=== PATIENT | female | born 1955 | race Caucasian/White ===

== ENCOUNTER 2016-04-08 05:54 | Inpatient (IN) | payer OTHER ==
--- NOTE | 2016-04-01 14:48 | NUR ---
Joint CAMP: Patient attended Joint [facility] at [facility], patient will be in for a hip replacement on 04/07/16. Marely Henriquezketty [phone] is the DPOA for patient. Patient comes from home and has 1 1/2 stairs to enter the home and then no stairs inside the home. Patient has boyfriend Rajendra, Mother Diane and Brother Thom to assist with care post discharge. Her boyfriend Rajendra with transport on day of discharge. Patient has never been involved with home health services or SNF, patient has been connected with outpatient therapy. Patient does have bath bench,elevated toilet seat and walker.
[2016-04-08] VITALS (19 sets, daily range): BP systolic 91–118; BP diastolic 52–62; PULSE 45–99; RESP 10–21; O2SAT 92–100
[~2016-04-08] VITALS: Ht 162.6 cm; Wt 74.4 kg
[2016-04-08] MEDS: Lactated Ringer's 1,000 ML IV SCH ×4 (05:00→08:47)
[~2016-04-08 05:54] MED LIST: OXYC1TAB24 PO; ROB500 PO; sudafed
[2016-04-08] MEDS ORDERED: Vancomycin Inj 1,000 MG in IV Premix 1 EACH IV ONE (06:00)
[2016-04-08] MEDS ORDERED: CeFAZolin 2 Gm/50 mL D5W IV Premix IV ONE (06:00)
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
[2016-04-08] MEDS ORDERED: MetoCLOpramide 5 mg/mL 2 mL Inj ONE (08:00)
[2016-04-08] MEDS ORDERED: Propofol 10,000 mCg/mL 20 mL Inj ONE (08:00)
[2016-04-08] MEDS ORDERED: Dexamethasone 4 mg/mL Inj ONE (08:00)
[2016-04-08] MEDS ORDERED: Ondansetron 2 mg/mL 2 mL Inj ONE (08:00)
[2016-04-08] MEDS ORDERED: Ropivacaine-PF 0.5% 30 mL Inj INFILTRATE ONE (08:13)
[2016-04-08] MEDS ORDERED: Acetaminophen IV 1,000 MG in IV Premix 1 EACH IV PRN (09:50)
[2016-04-08] MEDS ORDERED: Ondansetron 2 mg/mL 2 mL Inj IVPUSH PRN ×2 (09:50→10:00)
[2016-04-08] MEDS ORDERED: Sodium Biphos-Phos 133 mL Enema RECTAL PRN (09:50)
[2016-04-08] MEDS ORDERED: Magnesium Hydroxide 10 mL Oral Concentration PO PRN (09:50)
[2016-04-08] MEDS ORDERED: Polyethylene Glycol (PEG) 17 Gm Powder PO PRN (09:50)
[2016-04-08] MEDS ORDERED: diphenhydrAMINE 25 mg Capsule PO PRN (09:50)
[2016-04-08] MEDS ORDERED: Lactated Ringer's 500 ML IV PRN (09:57)
[2016-04-08] MEDS ORDERED: Lactated Ringer's 1,000 ML IV SCH (09:57)
[2016-04-08] MEDS ORDERED: Phenylephrine 10,000 mCg/mL Inj IVPUSH PRN (10:00)
[2016-04-08] MEDS ORDERED: MetoCLOpramide 5 mg/mL 2 mL Inj IVPUSH PRN (10:00)
[2016-04-08] MEDS ORDERED: fentaNYL-PF 50 mCg/mL 2 mL Inj IVPUSH PRN (10:00)
[2016-04-08] MEDS ORDERED: Dexamethasone 4 mg/mL Inj IVPUSH PRN (10:00)
[2016-04-08] MEDS ORDERED: EPHEDrine Sulfate 50 mg/mL Inj IVPUSH PRN (10:00)
[2016-04-08] MEDS: HYDROmorphone 1 mg/mL Inj IVPUSH PRN ×6 (10:12→23:15)
--- NOTE | 2016-04-08 10:51 | DRSVH ---
PROCEDURE: X-RAY PELVIS W/LAT HIP (LT) ([id number]) INDICATIONS: POST OP TECHNIQUE: AP pelvis with lateral view(s) of the left hip(s). COMPARISON: 01/18/2016 FINDINGS: Bones: Acute postoperative changes of total left hip arthroplasty with expected alignment and appeara nce. Soft tissues: The visualized bowel gas pattern is normal. No suspicious soft tissue calcifications. IMPRESSION: Postoperative changes total left hip arthroplasty. Dictated by: Lee Quintana M.D. on 04/08/2016 at 10:49 Approved by: Lee Quintana M.D. on 04/08/2016 at 10:50
[2016-04-08] MEDS: oxyCODONE-Acetamin 10-325 mg Tablet PO PRN (11:32)
--- NOTE | 2016-04-08 12:08 | PCM.ANEP1 ---
Post Anesthesia Phase 1 PACU Phase 1 Assessment Vital Signs Vital Signs Date Time Temp Pulse Resp B/P Pulse Ox O2 Delivery O2 Flow Rate FiO2 04/08/16 11:21 16 100 04/08/16 11:08 48 16 97/56 100 Nasal Cannula 2 04/08/16 11:01 15 96 04/08/16 11:00 48 15 101/60 94 Nasal Cannula 2 04/08/16 10:55 45 14 99/52 92 Room Air 04/08/16 10:45 46 10 108/58 96 Room Air 04/08/16 10:36 16 97 04/08/16 10:30 46 11 103/56 97 Room Air 04/08/16 10:19 16 96 04/08/16 10:15 36.2 55 16 111/54 97 Room Air 04/08/16 10:10 60 16 101/53 98 Room Air 04/08/16 10:00 51 16 102/61 99 Room Air 04/08/16 09:55 53 16 104/62 99 Room Air 04/08/16 09:50 14 99 04/08/16 09:50 53 14 91/56 100 Simple Mask 9 04/08/16 09:48 36.1 53 13 96/58 100 Simple Mask 9 04/08/16 06:30 36.6 63 18 118/53 97 Room Air Anesthetic Administered: GA Level of Alertness: Awake, talking Pain: No Nausea or Vomiting: No Oxygen Delivery: Room Air Lungs: Normal Air Movement Dermatome Level: L1,2 (Groin) Osmar Burkett MD Apr 08, 2016 12:08
--- NOTE | 2016-04-08 12:09 | PCM.ANEP2 ---
Post Anesthesia Evaluation ASA/CMS Post Anesthesia VS in Patient's Normal Range?: Yes Resp Stable; Airway Patent?: Yes CV Function & Hydration Stable: Yes Mental Status Recovered?: Yes Pain control Satisfactory?: Yes N/V Control Satisfactory?: Yes Osmar Burkett MD Apr 08, 2016 12:09
--- NOTE | 2016-04-08 12:53 | OP ---
[address] [address] OPERATIVE REPORT PATIENT: ZENAIDA FUNG : 1955 MR#: [id number] ADMIT: 04/08/2016 JOB ID: [id number] DATE OF SURGERY: 04/08/2016 PREOPERATIVE DIAGNOSIS(ES): Left hip degenerative arthritis. POSTOPERATIVE DIAGNOSIS(ES): Left hip degenerative arthritis. PROCEDURE: Left total hip arthroplasty. SURGEON: Adam Colldao DO PSYCHIATRIC SPECIALIST: Marely Nettles PA-C INDICATIONS: The patient is a 61-year-old female with left hip severe degenerative arthritis who had failed conservative measures and wished to proceed with a left total hip arthroplasty. We discussed the risks, benefits, and possible complications of surgery. All questions were answered. She wished to proceed. A certified surgical technician was required for the successful completion of this procedure. PROCEDURE IN DETAIL: The patient was brought to the operating room. She was given a preoperative antibiotic and 1 g TXA preoperatively, placed comfortably into the lateral decubitus position. The left hip was sterilely prepped and draped. An incision was made centered over the greater trochanter in line with the femur. Dissection was carefully carried through the subcutaneous tissue. Electrocautery was used for hemostasis. A split was then made in the iliotibial band in line with the skin incision and the Charnley retractor was then placed. A split was then made in the gluteus medius, between the junction of the anterior 1/3 and posterior 2/3, and Hohmann retractors were placed on either side of the femoral neck. An anterior sleeve of tissue was then released off of the trochanter, leaving a cuff of tissue for repair. This was taken to a point just distal to the vastus tubercle. A small triangular portion of capsule was then removed and the hip was then dislocated. A provisional neck cut was made about a fingerbreadth above the level of the lesser trochanter. The femur was then prepared, beginning with the box osteotome. This was then broached sequentially up to a size 5, which seemed to fit quite nicely. The six would not seat completely, therefore we went back to the 5 and calcar planed, and then addressed the acetabulum. Anterior and posterior acetabular retractors were placed and the pulvinar was removed from the acetabulum as well as the superior labrum and redundant capsular tissue. We then reamed the acetabulum beginning with a 45 reamer up to a 51 for a 52 cup. I initially seated the cup but felt that it was too uncovered posteriorly. 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 This was further secured with a single dome screw. We then trialed the hip and elected to go with a 36 plus 4 lateralized liner in order to give us a slight amount of leg length and increased offset and the 36 plus 1.5 ceramic head and the DePuy Tri Lock size 5 standard stem. The components were implanted. The hip was reduced. Had excellent stability, great range of motion. The wound was then irrigated and closed with #5 Ethibond to repair the capsule. The gluteus medius was repaired with #5 Ethibond and #1 Surgilon. The remainder of the vastus lateralis and gluteus was repaired with #1 Surgilon. The iliotibial band was repaired with #1 Surgilon and 0-Vicryl. The subcu was closed with 2-0 Vicryl and 2-V-Loc. The skin was closed with a running subcuticular 3-0 V-Loc and Naropin was added as an adjunct local anesthetic. Sterile dressings were applied. The patient tolerated the procedure well. Blood loss was 100 mL. Postop per protocol. Will have the patient weightbear to tolerance, use walker for ambulation, and will use Lovenox for DVT prophylaxis and Percocet 10/325 for pain, as she has been taking Percocet preoperatively for pain. Encouraged the patient to discontinue smoking.
[2016-04-08] MEDS: Ketorolac 15 mg/mL Inj IVPUSH PRN (12:56)
[2016-04-08] MEDS: 0.9% Sodium Chloride 1,000 ML IV SCH ×2 (12:57→23:51)
--- NOTE | 2016-04-08 13:10 | NUR ---
Admit to [facility] Pt transferred from PACU to [facility] at 1230 hrs. Pt alert and oriented x 3. PIV patent and intact. Left hip dressing clean, dry, and intact. All personal possessions with pt and place in closet in room. Pt in 8/10 pain; administered 15 mg IVP Toradol and 0.5 mg IVP Dilaudid. Pt also c/o itching around her nose. Will administer Benadryl. Care continues.
[2016-04-08] MEDS: CeFAZolin Inj 2 GM in IV Premix 1 EACH IV SCH ×2 (15:45→23:15)
[2016-04-08] MEDS: Sodium Chloride LOK Flush 10 mL Syringe IV SCH (16:30)
--- NOTE | 2016-04-08 16:35 | NUR ---
Nicotine withdrawal Pt feeling the urge to smoke and requesting a nicotine patch. Paged Dr. Collado and he did not want pt to have this, as nicotine impedes the healing process. Explained this to pt and she understands. Dr Collado suggested I give pt Valium as ordered to help with pt comfort. Care continues.
[2016-04-08] MEDS: Senna-Docusate 8.6-50 mg Tablet PO SCH (23:14)
[2016-04-08] MEDS: hydrOXYzine Pamoate 25 mg Capsule PO PRN (23:14)
[2016-04-09] MEDS: Sodium Chloride LOK Flush 10 mL Syringe IV SCH ×3 (00:30→16:53)
[2016-04-09 00:47] VITALS: BP 97/53; PULSE 61; RESP 18; O2SAT 96
[2016-04-09] MEDS: oxyCODONE-Acetamin 10-325 mg Tablet PO PRN ×4 (01:27→23:31)
[2016-04-09] MEDS: Ketorolac 15 mg/mL Inj IVPUSH PRN ×3 (01:31→23:31)
[2016-04-09] MEDS: HYDROmorphone 1 mg/mL Inj IVPUSH PRN ×2 (02:14→06:39)
[2016-04-09 05:23] VITALS: BP 104/54; PULSE 75; RESP 18; O2SAT 94
[2016-04-09] MEDS: 0.9% Sodium Chloride 1,000 ML IV SCH ×2 (05:46→15:46)
--- NOTE | 2016-04-09 06:00 | NUR ---
incisional pain Consistently 5-8. Ortho checks intact. Requires IV Dilaudid 1mg Q 3hrs and Roxycodone Q 4hrs. Repositioned and ice applied. Sleeping this morning.
[2016-04-09 06:25] LABS: BASOPHILS % (AUTO) 0.1 % (0-3); EOSINOPHILS % (AUTO) 0.1 % (0-5); Mean Corpuscular Hemoglobin 33.7 pg (27.0-35.0); Mean Corpuscular Volume 100.3 fL (81-100); NEUTROPHILS % (AUTO) 68.8 % (40-74); Platelet Count 252 bil/L (150-400)
[2016-04-09] MEDS: Senna-Docusate 8.6-50 mg Tablet PO SCH ×2 (08:30→19:51)
--- NOTE | 2016-04-09 08:59 | PCM.PNORTH ---
Subjective Date of Service: Apr 09, 2016 Visit Information: Reason for Visit Left Hip Arthritis Surgery/Surgery Date LEFT TOTAL HIP 04/08/16 Post-Op Day # Date of Admission: Apr 08, 2016 at 12:44 Hospital Day # Subjective Found patient awake and alert and sitting up in bed with nursing and nursing consultant. No complaints of pain at this time. Discussed her participation with formal physical therapy yesterday and encouraged her to continue this mobility and effort to achieve best results postop. Patient indicates she does have help at home in the form of a boyfriend and aged mother and a brother. I have encouraged patient to select one of these people that can help her with her Lovenox injections and to have them come in and receive training prior to discharge. I have discussed with patient that nursing home facility is no longer option at the time of discharge she were to pay privately and she relates that she is planning to discharge home. I have reviewed standard hip precautions with patient and encouraged use of the abduction wedge for the time being to help her remember not to cross her legs. Postop General: No Complaints, No Shortness of Breath, No Chest Pain, Good Appetite Pain Management: PO, IV Push Objective Exam Objective Orientation: Alert and oriented 3 and pleasant Dressing: Interoperative dressing is clean dry and intact Wound: Wound is not observed today Compartments: Calf and thigh are soft and nontender Mobility/sensation: Toprol and sensation are intact at left lower extremity distally Abduction wedge: In place RANDA hose: Absent Lin: Absent Wound VAC: Absent Drain: Absent Gait: Gait 20 feet on up today with formal physical therapy. Vital Signs and I/O Vital Sign - Last Date Time Temp Pulse Resp B/P Pulse Ox O2 Delivery O2 Flow Rate FiO2 04/09/16 05:23 36.7 75 18 104/54 94 Room Air 04/08/16 12:19 2 Intake and Output 04/08/16 04/08/16 04/09/16 Cumulative From/Thru 15:00 23:00 07:00 04/03/16 09:49 - 04/09/16 06:42 Intake Total 1695 ml 1600 ml 2535 ml 6030 ml Output Total 600 ml 400 ml 950 ml 1950 ml Balance 1095 ml 1200 ml 1585 ml 4080 ml Intake Oral 1600 ml 700 ml 2300 ml IV Total 1695 ml 1835 ml 3730 ml Output Urine Total 500 ml 400 ml 950 ml 1850 ml Estimated Blood Loss 100 ml 100 ml # Bowel Movements 0 0 Lab & Micro Results Laboratory Tests Test 04/09/16 05:55 White Blood Count 18.6th/mm3 (3.8-10.1) Red Blood Count 3.15mil/mm3 (3.90-5.20) Hemoglobin 10.6g/dL (12.0-15.6) Hematocrit 31.6% (35.0-46.0) Mean Corpuscular Volume 100.3fL (81-100) Mean Corpuscular Hemoglobin 33.7pg (27.0-35.0) Mean Corpuscular Hemoglobin Concent 33.5% (32.0-37.0) Red Cell Distribution Width 13.0% (12.3-15.4) Platelet Count 252bil/L (150-400) Neutrophils (%) (Auto) 68.8% (40-74) Lymphocytes (%) (Auto) 22.7% (14-46) Monocytes (%) (Auto) 8.0% (4-12) Eosinophils (%) (Auto) 0.1% (0-5) Basophils (%) (Auto) 0.1% (0-3) Sodium Level 138mEq/L (134-144) Potassium Level 4.3mEq/L (3.5-5.2) Chloride Level 101mEq/L (97-108) Carbon Dioxide Level 25mmol/L (18-29) Blood Urea Nitrogen 16mg/dL (8-27) Creatinine 1.17mg/dL (0.57-1.00) Estimat Glomerular Filtration Rate 67mL/min (>59) Glucose Level 139mg/dL (60-99) Calcium Level 8.9mg/dL (8.5-10.1) Result Diagram: 04/09/16 0555 04/09/16 0555 General Appearance: Alert, Oriented X3, Cooperative, No Acute Distress Extremities: No Compartment Syndrom Noted, Thigh & Calf Soft/Nontender Postop Sensory Motor: Distal Motor Intact, Movement in Toes, Distal Sensation Intact Activity: Activity per PT, Ambulate with PT (weightbearing as tolerated on the left lower extremity using front wheeled walker.) Catheters: None Assessment & Plan Plan Postop day # 1 from left total hip arthroplasty performed on 04/08/[address] Adam Collado. Weight bearing status: Weightbearing as tolerated on the left lower extremity using front wheeled walker. Mobility aid: Front wheeled walker Immobilization: None Precautions: No hip flexion past 90. No crossing of the legs. No active abduction 6 weeks. Physical therapy: Continue formal physical therapy for mobility, gait and safety. Pain control: Continue by mouth pain medication as needed. Removed patient away from IV pain medication as soon as possible beginning today. DVT prophylaxis: Lovenox 40 mg 3 weeks postop with transition to ASA 325 mg EC by mouth twice a day for an additional 3 weeks postop totaling 6 weeks postoperative DVT prophylaxis. Wound care: Keep wound and dressing clean dry and intact until seen in office in 2 weeks. Infectious DZ: None Lin: Absent Dressing: Interoperative dressing is clean dry and intact and will be changed tomorrow on postop day #2, 04/10/2016 Drain: None Abduction wedge: In place and working RANDA hose: Bilateral thigh high RANDA hose are ordered today. SCDs: In place and working Nursing communication: Nursing please move patient away from IV pain medications as soon as possible in preparation for discharge on postop day #3. 2-week follow-up: Follow-up in 2 weeks [facility] orthopedic clinic on prearranged appointment with [facility] for wound check and suture removal. 6-week follow-up: Follow-up in 6 weeks at [facility] orthopedic clinic with Dr. Adam Collado with AP pelvis and left crosstable lateral hip x-rays on arrival. Plan: Patient will be in-house for 2-3 days and participate with formal physical therapy and ideally discharge to home on December 10 postop day #3. Discharge instructions: No hip flexion past 90, no crossing of the legs, no active abduction 6 weeks. Keep wound and dressing clean dry and intact until seen in office in 2 weeks. Change dressing as needed if it becomes soiled or loose. Ice surgical area as needed. Use front wheeled walker and continue to pursue gait and mobility. Discharge plan: Anticipate discharge to home with family has caregivers on 44 postop day #3, 04/11/2016. VTE Prophylaxis: Sub-Q Enoxaparin (Lovenox 40 mg subcutaneous daily 3 week postop with transition to ASA 325 mg EC by mouth twice a day for an additional 3 weeks totaling 6 weeks DVT prophylaxis.) Vernon Del Toro PA-C Apr 09, 2016 08:42
[2016-04-09] MEDS: hydrOXYzine Pamoate 25 mg Capsule PO PRN ×3 (10:00→19:51)
--- NOTE | 2016-04-09 10:30 | NUR ---
Heartburn Pt c/o heartburn after breakfast this a.m., and requested medication such as Tums. Paged Vernon WISE, and he said he would order something for her as soon as possible. Care continues.
[2016-04-09] MEDS ORDERED: Alum-Mag Hydrox-Simeth 30 mL Suspension PO PRN (12:55)
[2016-04-09 14:10] VITALS: BP 105/60; PULSE 79; RESP 16; O2SAT 97
--- NOTE | 2016-04-09 15:32 | NUR ---
Evaluation completed. Please go to "Notes" then click on "Assessments and Notes" (bottom left corner of screen). Then select appropriate discipline tab on top of screen.
--- NOTE | 2016-04-09 17:52 | NUR ---
Social work Screen Note: Patient is a 73 year old female admitted under observation status for left hip arthritis. Patient payer as [employer]. Patient has no prison disability nor [place] benefits. Patient [place] with mother Marely, . Patient pharmacy of choice as [facility]. Patient has no HHC or SNF history. Patient has a walker for use at home. Patient has AD on file. Patient states that he still drives and independent with needs prior to admit. PT assessed patient and recommending HHC vs outpt PT. SW to follow up with patient tomorrow to obtain HHC choice and to determine discharge needs with further PT eval. SW to follow. PLAN: Home with HHC vs outpt PT. Discharge pending clinical course. SW to follow for HHC choice vs outpt PT lona LORENZO Addendum: 04/10/16 at 1224 by MEGHNA GAYLE PLEASE DISREGARD ABOVE NOTE:
[2016-04-09 20:28] VITALS: BP 123/69; PULSE 84; RESP 18; O2SAT 95
[2016-04-10] VITALS (7 sets, daily range): BP systolic 109–123; BP diastolic 64–73; PULSE 77–96; RESP 16–19; O2SAT 95–98
[2016-04-10] MEDS: Sodium Chloride LOK Flush 10 mL Syringe IV SCH ×3 (00:30→17:57)
[2016-04-10] MEDS: 0.9% Sodium Chloride 1,000 ML IV SCH ×3 (01:46→19:43)
--- NOTE | 2016-04-10 06:16 | NUR ---
pain pt consistently rates her pain in her hip 11/16. per report pt was needing pain medication every 2hrs. this shift she was able to go 4-5hrs in between and sleep, which seems to be and improvement.
[2016-04-10 06:24] LABS: BASOPHILS % (AUTO) 0.3 % (0-3); EOSINOPHILS % (AUTO) 0.6 % (0-5); MONOCYTES % (AUTO) 8.7 % (4-12); Mean Corpuscular Hemoglobin 34.3 pg (27.0-35.0); Mean Corpuscular Volume 99.4 fL (81-100); NEUTROPHILS % (AUTO) 62.4 % (40-74); Platelet Count 249 bil/L (150-400)
--- NOTE | 2016-04-10 07:10 | PCM.PNORTH ---
Subjective Date of Service: Apr 10, 2016 Visit Information: Reason for Visit Left Hip Arthritis Surgery/Surgery Date LEFT TOTAL HIP 04/08/16 Post-Op Day # Date of Admission: Apr 08, 2016 at 12:44 Hospital Day # Subjective Found patient awake and alert this morning and well position in bed with abduction pillow in place. Patient continues to complain of pain which seems to be a low-level but is difficult to chris. I have explained to the patient that her chronic Percocet 10 use for multiple other issues including neck back and hip prior to her surgery has caused a condition of the situation and has reduced its effectiveness for use on her current postop pain. I have explained to her that this is the result of chronic opioid use and that ultimately she will probably experience more significant pain than someone who was not on chronic opioids prior to surgery. I will also explained to her that we will make changes in her medication regime today in an effort to reduce her discomfort without either causing her to be somnolent or depressing her respiratory drive. We will also discussed the fact that we cannot send her home on IV pain medications so that we will move her away from those again today. I have reassured patient that her wound is in good condition and that she participated very well with physical therapy yesterday on postop day 1 with a total of gait 110 feet. We have discussed discharge tomorrow on postop day 3 and I explained to her again that because her surgery is elective discharged to a [facility] facility would not be an option unless she is willing to pay for this on her own. I have encouraged her to continue her good participation with formal physical therapy and to anticipate discharge tomorrow on postop day #3. Postop General: No Shortness of Breath, No Chest Pain, Good Appetite Pain Management: PO, IV Push Objective Exam Objective Orientation: Alert and oriented 3 and pleasant. Dressing: Intraoperative dressing is lightly soiled and loosened. Dressing is changed this morning to shingled island-type dressings with ends cut to facilitate drying of the wound. Silverlon dressing adjunct is in place. Wound: Wound is in good condition with no focal erythema, swelling or drainage. There is some ecchymosis noted about the surgical site but this is mild. There does appear to be some tape kapoor about the surgical site which are small in nature and not deep. Compartments: Calf and thigh are soft and nontender. Mobility/sensation: Toe wiggle and sensation are intact at left lower extremity distally. Abduction wedge: Abduction wedge is in place. RANDA hose: Absent Lin: Wound VAC: None Drain: None Gait: Gait 110 feet yesterday on postop day #1, 04/09/2016 with formal physical therapy. Vital Signs and I/O Vital Sign - Last Date Time Temp Pulse Resp B/P Pulse Ox O2 Delivery O2 Flow Rate FiO2 04/10/16 06:14 36.9 80 18 123/69 97 Room Air 04/08/16 12:19 2 Intake and Output 04/09/16 04/09/16 04/10/16 Cumulative From/Thru 15:00 23:00 07:00 04/03/16 09:49 - 04/10/16 06:43 Intake Total 202 ml 779 ml 300 ml 7311 ml Output Total 675 ml 1750 ml 4375 ml Balance 202 ml 104 ml -1450 ml 2936 ml Intake Oral 779 ml 300 ml 3379 ml IV Total 202 ml 3932 ml Output Urine Total 675 ml 1750 ml 4275 ml Estimated Blood Loss 100 ml # Voids 3 3 # Bowel Movements 0 0 Lab & Micro Results Laboratory Tests Test 04/10/16 06:10 White Blood Count 19.9th/mm3 (3.8-10.1) Red Blood Count 3.24mil/mm3 (3.90-5.20) Hemoglobin 11.1g/dL (12.0-15.6) Hematocrit 32.2% (35.0-46.0) Mean Corpuscular Volume 99.4fL (81-100) Mean Corpuscular Hemoglobin 34.3pg (27.0-35.0) Mean Corpuscular Hemoglobin Concent 34.5% (32.0-37.0) Red Cell Distribution Width 13.3% (12.3-15.4) Platelet Count 249bil/L (150-400) Neutrophils (%) (Auto) 62.4% (40-74) Lymphocytes (%) (Auto) 27.4% (14-46) Monocytes (%) (Auto) 8.7% (4-12) Eosinophils (%) (Auto) 0.6% (0-5) Basophils (%) (Auto) 0.3% (0-3) Sodium Level 138mEq/L (134-144) Potassium Level 4.3mEq/L (3.5-5.2) Chloride Level 102mEq/L (97-108) Carbon Dioxide Level 24mmol/L (18-29) Blood Urea Nitrogen 14mg/dL (8-27) Creatinine 0.85mg/dL (0.57-1.00) Estimat Glomerular Filtration Rate 97mL/min (>59) Glucose Level 103mg/dL (60-99) Calcium Level 9.2mg/dL (8.5-10.1) Result Diagram: 04/10/1660904/10/16609 General Appearance: Alert, Oriented X3, Cooperative, No Acute Distress Extremities: No Compartment Syndrom Noted, Thigh & Calf Soft/Nontender Postop Sensory Motor: Distal Motor Intact, Movement in Toes, Distal Sensation Intact Activity: Activity per PT, Ambulate with PT (weightbearing as tolerated on the left lower extremity using front wheeled walker.) Catheters: None Assessment & Plan Impression Patient is a pleasant 61-year-old female who is postop day 2 from a left total hip arthroplasty and experiencing some discomfort at her surgical site. Patient has a history of chronic opioid use with Percocet tens and I have discussed with her that this is the reason she is having some difficulty with pain control. She has participated very well with physical therapy on postop day 1 and I am encouraged patient she is doing well in her recovery. Problems: Plan Postop day # 2 from left total hip arthroplasty performed on 04/08/[address] Adam Collado. Weight bearing status: Weightbearing as tolerated on the left lower extremity using front wheeled walker. Mobility aid: Front wheeled walker Immobilization: Hip abduction wedge to used while in bed. Precautions: No hip flexion past 90. No crossing of the legs. No active abduction 6 weeks. Physical therapy: Continue formal physical therapy for mobility, gait and safety. Pain control: Continue by mouth pain medications including Percocet 10, Vistaril 25-50 and supplemental [place] 5 mg as needed.. Move patient away from IV pain medication as soon as possible beginning today. DVT prophylaxis: Lovenox 40 mg 3 weeks postop with transition to ASA 325 mg EC by mouth twice a day for an additional 3 weeks postop totaling 6 weeks postoperative DVT prophylaxis. Wound care: Keep wound and dressing clean dry and intact until seen in office in 2 weeks. Infectious DZ: None Lin: Absent Dressing: Interoperative dressing is changed to postop Island dressings today which are shingled and trimmed promote airflow and drying of the wound. Wound is in good condition with no focal erythema, swelling or drainage. There is some ecchymosis and some apparent tape kapoor at the periphery which are mild in nature. Drain: None Abduction wedge: In place and working. Abduction wedge may be removed unless patient feels more comfortable with it. Straps may also be discontinued if she wants the wedge left in place which may promote her comfort. RANDA hose: Absent. Bilateral thigh high RANDA hose are reordered today. SCDs: In place and working Nursing communication: Nursing please move patient away from IV pain medications as soon as possible in preparation for discharge on postop day #3. Abduction wedge may be removed unless patient feels more comfortable with it. Straps may also be discontinued if she wants the wedge left in place which may promote her Comfort. Nursing please fit with bilateral thigh- high RANDA hose today. These were ordered yesterday. 2-week follow-up: Follow-up in 2 weeks S [facility] orthopedic clinic [facility] for wound check and suture removal. 6-week follow-up: Follow-up in 6 weeks at [facility] orthopedic clinic with Dr. Adam Collado with AP pelvis and left crosstable lateral hip x-rays on arrival. Plan: Patient will be in-house for 2-3 days and participate with formal physical therapy and ideally discharge to home on December 10 postop day #3. Discharge instructions: No hip flexion past 90, no crossing of the legs, no active abduction 6 weeks. Keep wound and dressing clean dry and intact until seen in office in 2 weeks. Change dressing as needed if it becomes soiled or loose. Ice surgical area as needed. Use front wheeled walker and continue to pursue gait and mobility. Discharge plan: Anticipate discharge to home with family as caregivers on postop day #3, 04/11/2016. VTE Prophylaxis: Sub-Q Enoxaparin (Lovenox 40 mg subcutaneous daily 3 week postop with transition to ASA 325 mg EC by mouth twice a day for an additional 3 weeks totaling 6 weeks DVT prophylaxis.), SCDs Vernon Del Toro PA-C Apr 10, 2016 07:03
[2016-04-10] MEDS: Senna-Docusate 8.6-50 mg Tablet PO SCH ×2 (08:45→19:42)
[2016-04-10] MEDS: oxyCODONE-Acetamin 10-325 mg Tablet PO PRN ×4 (09:03→22:20)
[2016-04-10] MEDS: hydrOXYzine Pamoate 25 mg Capsule PO PRN ×4 (09:04→22:19)
--- NOTE | 2016-04-10 12:24 | NUR ---
Social Work Screen Note: Correct Note SW met with patient at bedside to discuss discharge plan. Patient is a 61 year old female admitted on 04/08/16 for left hip arthritis. Patient payer as [employer]. Patient has no director long term care disability nor VA benefits. Patient resides in [place] with mother Mraely, who is 90 years old. Patient states brother and sister in law resides in the outhouse adjacent to home and family to assist with care needs. Patient also states that boyfriend able to assist with care needs at home. Patient pharmacy of choice as [facility]. Patient has no HHC or SNF history. Patient has a walker, bath bench, and elevated toilet seat at home for use. Patient states having AD on file. Patient states that she still drives and independently prior to admit. PT assessed patient and recommending HHC vs outpt PT. OT recommending possible home with continued therapy. SW discussed discharge options of home with HHC and outpt therapy. Patient states plan as home with HHC. HHC choice list offered. Patient states having no HHC preference. HHC choice as [facility]. SW to obtain HHC face to face upon discharge from . SW provided access to [facility] preemptively. SW to also await further progression with therapies to ensure home safety. SW to follow. PLAN: Home with HHC vs outpt PT. HHC choice as [facility] (Access provided and F2F pending). SW to follow as further needs arise. Dana LORENZO
--- NOTE | 2016-04-10 13:37 | NUR ---
Pain P: Patient complained of pain Left hip 11/16 initially this am I: PO johnson meds provided Q3 E: Pain decreased to a 08/16-tolerable
--- NOTE | 2016-04-10 15:40 | NUR ---
ACTIVITY/PAIN Patient worked with therapy x2 today, including steps. Feels like its getting a little easier to move around each time. After 2nd therapy session, patient's pain level went up to an 8/10 just 2 hrs after receiving percocet pain medications. Administered oxy 10mg with student nurse. Ice pack already in place. Will continue to monitor.
[2016-04-11] MEDS: oxyCODONE-Acetamin 10-325 mg Tablet PO PRN ×3 (02:41→11:06)
[2016-04-11] MEDS: hydrOXYzine Pamoate 25 mg Capsule PO PRN ×3 (02:41→11:06)
[2016-04-11] MEDS: Sodium Chloride LOK Flush 10 mL Syringe IV SCH ×2 (02:44→08:45)
--- NOTE | 2016-04-11 03:13 | NUR ---
Activity/ Pain Patient transferred from bed to BR x2 this shift. Pain managed on oral medications. Patient denies CP, SOB, and/or Abdominal discomfort at this time. Bed wheels locked, call light within reach, and intentional rounding.
[2016-04-11] MEDS: 0.9% Sodium Chloride 1,000 ML IV SCH (05:25)
[2016-04-11 05:28] VITALS: BP 117/62; PULSE 81; RESP 18; O2SAT 93
[2016-04-11] MEDS: Senna-Docusate 8.6-50 mg Tablet PO SCH (08:37)
[2016-04-11 10:15] VITALS: BP 95/60; PULSE 93; RESP 19; O2SAT 93
--- NOTE | 2016-04-11 13:37 | PCM.DIORTH ---
Ortho Discharge Instruction Date of Service: Apr 11, 2016 Dates of Hospitalization Date of Hospital Admission Apr 08, 2016 at 12:44 Providers Admitting Physician: Adam Collado DO Primary Care Physician: Carlos Jeffers MD Attending Physician: Adam Collado DO Diet Discharge Diet: No restrictions Activity Discharge Activity-General: Try not to overdue, Be up and about, Balance rest and activity, Ice incision 3-5 time/day for 20min, Activity as pain allows, Activity as energy allows, No driving while taking narcotic Left Lower Extremity: Weight Bearing as tolerated Discharge Assist Device: Front Wheeled Walker Dressing and Incisional Care Discharge Dressing Care: Keep dressing clean, dry & intact, Change soiled dressing Discharge Hygiene: May shower (patient may shower but wound and dressing should be covered and kept clean and dry.), DO NOT soak incision under water, NO bathtub, hot tub or whirlpool Additional Instructions Discharge Instructions Discharge instructions: No hip flexion past 90, no crossing of the legs, no active abduction 6 weeks. Keep wound and dressing clean dry and intact until seen in office in 2 weeks. Change dressing as needed if it becomes soiled or loose. Ice surgical area as needed. Use front wheeled walker and continue to pursue gait and mobility. Follow Up Plan Follow Up Plan Patient will be seen at 2 weeks, 6 weeks and 12 weeks postoperatively. Patient will be seen when necessary in the interim. Follow-up Provider (F9): Adam Collado DO Follow-up appointment: Weeks (follow-up in 2 weeks at [facility] orthopedic clinic on prearranged appointment with mid-level provider for wound check and suture removal.) Call your provider for: Fever, Chills, Shortness of breath, Vomitting, Drainage at incision Vernon Del Toro PA-C Apr 11, 2016 13:37
[2016-04-11] MEDS ORDERED: ENOX40DI8 SUBQ (13:44)
[2016-04-11] MEDS ORDERED: OXYC-466 PO (13:44)
[2016-04-11] MEDS ORDERED: OXYC5TAB72 PO (13:44)
[2016-04-11] MEDS ORDERED: HYDR-3797 PO (13:44)
--- NOTE | 2016-04-11 13:47 | PCM.DC.ORT ---
Discharge Summary Date of Service: Apr 11, 2016 Date of Hospital Admission: Apr 08, 2016 at 12:44 Date of Surgery: Apr 08, 2016 Date of Discharge: Apr 11, 2016 Reason for Hospitalization: Severe left hip osteoarthritis Procedures Performed: Left total hip arthroplasty Hospital Course: Patient was admitted to the preoperative care unit on 04/08/2016 upon processing was taken to the operating room where her procedure was performed without incident. Patient was then awakened and taken to the postoperative care unit and upon recovery from anesthesia was transferred to the orthopedic care unit where she participated with formal physical therapy and was qualified for discharge to home on 04/11/2016. Problems: (1) Arthritis of left hip Status: Acute ICD Code: M19.90 Disposition: Discharge to home with family as caregivers and home health PT and RN. Orthopedic Follow up Plan: In Two Weeks in my clinic (follow-up in 2 weeks S [facility] orthopedic clinic on prearranged appointment with mid-level provider for wound check and suture removal.) Discharge Instructions: Discharge instructions: No hip flexion past 90, no crossing of the legs, no active abduction 6 weeks. Keep wound and dressing clean dry and intact until seen in office in 2 weeks. Change dressing as needed if it becomes soiled or loose. Ice surgical area as needed. Use front wheeled walker and continue to pursue gait and mobility. Management Plan: Patient will be seen at 2 weeks, 6 weeks and 12 weeks postoperatively. Patient will be seen when necessary in the interim. ([sudafed]) 120 MG Q12H PRN PRN For Congestion Enoxaparin Sodium (Enoxaparin Sodium) 40 Mg/0.4 Ml Syringe 40 MG SUBQ Q24 Lovenox 40 mg subcutaneous for a total of 21 days postop with transition to ASA 325 mg EC by mouth twice a day for 3 additional weeks totaling 6 weeks DVT prophylaxis. Hydroxyzine Pamoate (HydrOXYzine Pamoate) 25 Mg Capsule 25 MG PO Q6H PRN PRN For Spasm and/or Restlessness oxyCODONE (oxyCODONE) 5 Mg Tablet 5-10 MG PO Q4H PRN PRN breakthrough pain oxyCODONE-Acetaminophen 10-325 mg (oxyCODONE-Acetaminophen 10-325 mg) 1 Each Tablet 1-2 TAB PO Q4-6H PRN PRN For Pain Vernon Del Toro PA-C Apr 11, 2016 13:47
--- NOTE | 2016-04-11 13:55 | PCM.PNORTH ---
Subjective Date of Service: Apr 11, 2016 Visit Information: Reason for Visit Left Hip Arthritis Surgery/Surgery Date LEFT TOTAL HIP 04/08/16 Post-Op Day # Date of Admission: Apr 08, 2016 at 12:44 Hospital Day # Subjective Patient is found awake and alert this morning and sitting up in a chair beside her bed comfortably. Patient has family in attendance. No complaints of pain at this time. Patient performed well with therapy yesterday but has had a little more difficulty today likely secondary to overdoing it. Patient is prepared for discharge to home and we have discussed discharging her this afternoon. Postop General: No Complaints, No Shortness of Breath, No Chest Pain, Good Appetite Pain Management: PO Objective Exam Objective Orientation: Alert and oriented 3 and pleasant. Dressing: Postoperative dressing is clean and dry and somewhat loosened. Wound: Wound is observed today. Compartments: Calf and thigh are soft and nontender. Mobility/sensation: Toe wiggle and sensation are intact and left lower extremity distally. Abduction wedge: None RANDA hose: In place Lin: None Wound VAC: None Drain: None Gait: Gait 100-150 feet on 04/10/2016. Patient is cleared for discharge to home with home health PT. Vital Signs and I/O Vital Sign - Last Date Time Temp Pulse Resp B/P Pulse Ox O2 Delivery O2 Flow Rate FiO2 04/11/16 10:15 36.8 93 19 95/60 93 Room Air 04/08/16 12:19 2 Intake and Output 04/10/16 04/10/16 04/11/16 Cumulative From/Thru 15:00 23:00 07:00 04/03/16 09:49 - 04/11/16 06:11 Intake Total 1590 ml 450 ml 9351 ml Output Total 1100 ml 1025 ml 6500 ml Balance 490 ml -575 ml 2851 ml Intake Oral 1590 ml 450 ml 5419 ml IV Total 3932 ml Output Urine Total 1100 ml 1025 ml 6400 ml Estimated Blood Loss 100 ml # Voids 1 4 # Bowel Movements 0 1 1 Result Diagram: 04/10/16 0610 04/10/16 0610 General Appearance: Alert, Oriented X3, Cooperative, No Acute Distress Extremities: No Compartment Syndrom Noted, Thigh & Calf Soft/Nontender Postop Sensory Motor: Distal Motor Intact, Movement in Toes, Distal Sensation Intact SURGICAL WOUND : Wound Drainage Type: no drain present Activity: Activity per PT, Ambulate with PT (weightbearing as tolerated on the left lower extremity using front wheeled walker.) Catheters: None Assessment & Plan Problems: (1) Arthritis of left hip Status: Acute ICD Code: M19.90 Plan Postop day # 3 from left total hip arthroplasty performed on 04/08/[address] Adam Collado. Weight bearing status: Weightbearing as tolerated on the left lower extremity using front wheeled walker. Mobility aid: Front wheeled walker Immobilization: Hip abduction wedge to used while in bed. Precautions: No hip flexion past 90. No crossing of the legs. No active abduction 6 weeks. Physical therapy: Continue formal physical therapy for mobility, gait and safety. Pain control: Continue by mouth pain medications including Percocet 10, Vistaril 25-50 and supplemental [place] 5 mg as needed.. DVT prophylaxis: Lovenox 40 mg 3 weeks postop with transition to ASA 325 mg EC by mouth twice a day for an additional 3 weeks postop totaling 6 weeks postoperative DVT prophylaxis. Wound care: Keep wound and dressing clean dry and intact until seen in office in 2 weeks. Infectious DZ: None Lin: Absent Dressing: Postop dressing is clean and dry and somewhat loosened. Drain: None Abduction wedge: Absent. RANDA hose: Absent. Bilateral thigh high RANDA hose in place SCDs: In place and working Nursing communication: Nursing please change patient's left hip dressing prior to discharge today. 2-week follow-up: Follow-up in 2 weeks S [facility] orthopedic clinic on prearranged appointment with mid-low provider for wound check and suture removal. 6-week follow-up: Follow-up in 6 weeks at [facility] orthopedic clinic with Dr. Adam oCllado with AP pelvis and left crosstable lateral hip x-rays on arrival. Plan: Patient will discharged home today with family has caregivers and a short course of home health PT and RN. Discharge instructions: No hip flexion past 90, no crossing of the legs, no active abduction 6 weeks. Keep wound and dressing clean dry and intact until seen in office in 2 weeks. Change dressing as needed if it becomes soiled or loose. Ice surgical area as needed. Use front wheeled walker and continue to pursue gait and mobility. Discharge plan: Discharge patient to home today on postop day 3, 04/11/2016 with family has caregivers and home health physical therapy and nursing. VTE Prophylaxis: Sub-Q Enoxaparin (Lovenox 40 mg subcutaneous daily 3 week postop with transition to ASA 325 mg EC by mouth twice a day for an additional 3 weeks totaling 6 weeks DVT prophylaxis.), JEANs, RANDA Del Toro, Vernon Akins PA-C Apr 11, 2016 13:55
[2016-04-11] MEDS: HYDROmorphone 1 mg/mL Inj IVPUSH PRN (15:14)
[2016-04-11] MEDS: Ketorolac 15 mg/mL Inj IVPUSH PRN (15:15)
--- NOTE | 2016-04-11 16:13 | NUR ---
F2F faxed to [facility] and [facility] with [facility] was called and notified that the patient is discharging home 04/11/16. Sendy Ferrell LMSW, ACM
--- NOTE | 2016-04-11 16:37 | NUR ---
Discharge Orders for discharge were received. The patient was made aware of the plan and was agreeable to the discharge. Patient given her scripts and information on her diagnosis, treatment and new medications, signs and symptoms to be aware of, precautions, follow up instructions and surgical site care information. Patient signified understanding of this information and her asymptomatic IV was removed intact. The patient's belongings were then gathered and she was dressed in her own clothing. She then ambulated into a wheelchair which took her to the main entrance and a private vehicle. At the time of discharge the patient was alert and oriented, with no complaints of chest pain, shortness of breath, nausea or other difficulty. Surgical dressing clean dry and intact.
== END 2016-04-11 15:48 | disposition home or self-care (01) | DRG 470 ==
LOC: SAS 05:54 → OSC 12:44
PROVIDERS: ADMIT Orthopaedic Surgery; ATTEND Orthopaedic Surgery
PROC: 0SRB04A Replacement of Left Hip Joint with Ceramic on Polyethylene Synthetic Substitute, Uncemented, Open Approach (ICD-10-PCS; principal; 2016-04-08 07:30)
DX: M16.12 Unilateral primary osteoarthritis, left hip (principal); F17.210 Nicotine dependence, cigarettes, uncomplicated